=== PATIENT | female | born 1965 | race Caucasian/White ===

== ENCOUNTER 2020-08-06 11:58 | Outpatient (CLI) | payer MEDICARE | END 2020-08-06 11:59 | disposition home or self-care (01) | LOC: BICMAMMO 11:58 | PROVIDERS: ATTEND Clinical Nurse Specialist Medical-Surgical | DX: Z12.31 Encounter for screening mammogram for malignant neoplasm of breast (principal) | CPT/HCPCS: 77063; 77067 ==

== ENCOUNTER 2021-02-05 14:12 | Emergency (ER) | payer MEDICARE ==
[2021-02-05] MEDS ORDERED: Ketorolac Tromethamine 30 MG/ML VIAL ONE (14:48)
[2021-02-05] MEDS ORDERED: Acetaminophen 500 MG TAB ONE (14:48)
[2021-02-05 15:03] LABS: Bacteria/HPF None Seen HPF (None Seen); Bilirubin Negative (Negative); Blood, Urine Trace (Negative); Clarity Clear (Clear); Glucose, Urine (Dipstick) Normal (Negative); Ketone, Urine Negative (Negative); Leukocyte Negative Leu/uL (Negative); Nitrite Negative (Negative); Protein, Urine (Dipstick) Negative (Neg-Trace); RBC/HPF 0-3 HPF (0-3); Specific Gravity, Urine 1.011 (1.002-1.036); Urobilinogen Normal mg/dL (Less than 2); WBC/HPF 0-3 HPF (0-3)
== END 2021-02-05 17:10 | disposition home or self-care (01) ==
LOC: ERS 14:12
DX: M54.41 Lumbago with sciatica, right side (principal); Z79.899 Other long term (current) drug therapy
CPT/HCPCS: 81003; 81015; 96372; 99283; J1885

== ENCOUNTER 2021-03-30 09:13 | Outpatient (CLI) | payer MEDICARE | END 2021-03-30 09:14 | disposition home or self-care (01) | LOC: MRI 09:13 | PROVIDERS: ATTEND Nurse Practitioner Family | DX: M47.27 Other spondylosis with radiculopathy, lumbosacral region (principal); M47.26 Other spondylosis with radiculopathy, lumbar region | CPT/HCPCS: 72148 ==

== ENCOUNTER 2021-11-03 01:32 | Emergency (ER) | payer MEDICARE, OTHER ==
[2021-11-03] MEDS ORDERED: Lidocaine Viscous Sol 2% 15 ml UD Cup ONE (01:50)
== END 2021-11-03 02:31 | disposition home or self-care (01) ==
LOC: ERS 01:32
DX: T16.2XXA Foreign body in left ear, initial encounter (principal)
CPT/HCPCS: 69200